=== PATIENT | male | born 2000 | race Hispanic/Latino ===

== ENCOUNTER 2022-04-03 16:17 | Emergency (ER) | payer OTHER, SELFPAY ==
[2022-04-03] MEDS ORDERED: HYDROCODONE/APAP 7.5/325 MG TAB ONE (16:56)
[2022-04-03] MEDS ORDERED: LIDOCAINE 2% W/EPI 1:200,000 MPF 20 ML VIAL IM ONE (18:59)
--- NOTE | 2022-04-03 19:38 | ER ---
Nurse's Notes [facility] Name: Khurram Bailey Age: 21 yrs Sex: Male : 2000 Arrival Date: 04/03/2022 Time: 16:19 Bed 17 Private MD: Diagnosis: Laceration without foreign body of left hand, initial encounter Presentation: 04/03 16:19 Chief complaint: EMS states: patient cut his left wrist at work on sheet metal. patient ap3 is [place]ican speaking only, and presents to the ED with his left wrist wrapped in an alix bandage. Coronavirus screen: At this time, the client does not indicate any symptoms associated with coronavirus-19. Ebola Screen: No symptoms or risks identified at this time. Complicating Factors: Glass or an other foreign body is present in the wound. Initial Sepsis Screen: Does the patient meet any 2 criteria? No. Patient's initial sepsis screen is negative. Does the patient have a suspected source of infection? No. Patient's initial sepsis screen is negative. Risk Assessment: Do you want to hurt yourself or someone else? Patient reports no desire to harm self or others. Onset of symptoms was April 03, 2022. 16:19 Method Of Arrival: EMS: [facility] ap3 16:19 Acuity: PERNELL 4 ap3 Triage Assessment: 16:29 General: Appears uncomfortable, Behavior is cooperative, anxious. Pain: Complains of ap3 pain in left wrist Pain currently is 8 out of 10 on a pain scale. Pain began suddenly. Neuro: Level of Consciousness is awake, alert, obeys commands, Oriented to person, place, time, situation, Speech is normal. Cardiovascular: Patient's skin is warm and dry. Respiratory: Airway is patent. Injury Description: Laceration sustained to left wrist is clean, contaminated, bleeding moderately, is bleeding moderately. Historical: - Allergies: 16:29 No Known Allergies; ap3 - Home Meds: 16:29 None [Active]; ap3 - PMHx: 16:29 None; ap3 - Immunization history:: Client reports receiving the 2nd dose of the Covid vaccine, Last tetanus immunization: not immunized. - Social history:: Smoking status: Patient denies any tobacco usage or history of. Screenin:30 Abuse screen: Denies threats or abuse. Nutritional screening: No deficits noted. ap3 Tuberculosis screening: No symptoms or risk factors identified. Fall Risk None identified. Assessment: 16:30 Musculoskeletal: Range of motion: intact in all extremities. ap3 18:08 Reassessment: Patient and/or family updated on plan of care and expected duration. Pain ap3 level reassessed. Patient is alert, oriented x 3, equal unlabored respirations, skin warm/dry/pink. 18:16 Reassessment: Patient and/or family updated on plan of care and expected duration. Pain ap3 level reassessed. Patient is alert, oriented x 3, equal unlabored respirations, skin warm/dry/pink. Patient states symptoms have improved. 20:22 Reassessment: No changes from previously documented assessment. sm5 Vital Signs: 16:19 BP 143 / 80; Pulse 90; Pulse Ox 99% ; Weight 65.77 kg; Height 5 ft. 7 in. (170.18 cm); ap3 Pain 8/10; 18:08 BP 121 / 55; Pulse 75; Pulse Ox 100% on R/A; ap3 18:59 BP 94 / 68; Pulse 84; Pulse Ox 100% on R/A; ap3 16:19 Body Mass Index 22.71 (65.77 kg, 170.18 cm) ap3 ED Course: 16:19 Patient arrived in ED. ap3 16:19 Vinay Velasco PA is PHCP. cp 16:19 Talha Bateman DO is Attending Physician. cp 16:29 Triage completed. ap3 16:30 Arm band placed on right wrist. ap3 16:30 Patient has correct armband on for positive identification. Bed in low position. Call ap3 light in reach. Side rails up X2. Pulse ox on. NIBP on. Door closed. Noise minimized. 16:50 Annel Rosenthal, ODESSA is Primary Nurse. ap3 18:57 XRAY Hand LEFT 3 View In Process Unspecified. EDMS 18:59 Nurse Practitioner and/or Physician Commercial Production Editor to see patient. ap3 19:01 Assist provider with laceration repair on left wrist using sutures. Set up tray. ap3 Performed by Vinay DOUGLASS. 19:11 Primary Nurse role handed off by Annel Rosenthal, RN mw2 19:23 Ysabel Eckert RN is Primary Nurse. 5 20:21 Dressings: Kerlix X 1; left wrist non-adherent dressing x 1 left wrist. Velcro wrist 5 splint applied to left wrist. Wound care: to laceration located on left wrist was cleaned with soap and water, dressed with Kerlix, Patient tolerated well. 20:22 Patient did not have IV access during this emergency room visit. 5 Administered Medications: 17:01 Drug: Hydrocodone-Acetaminophen (7.5 mg-325 mg) 1 tabs Route: PO; ap3 18:13 Follow up: Response: No adverse reaction ap3 Medication: 20:22 VIS not applicable for this client. 5 Outcome: 19:37 Discharge ordered by . tatianna 20:22 Discharged to home ambulatory. 5 20:22 Condition: stable 20:22 Discharge instructions given to patient, Instructed on discharge instructions, follow up and referral plans. medication usage, wound care, Demonstrated understanding of instructions, follow-up care, medications, wound care, Prescriptions given X 2. 20:22 Patient left the ED. 5 Signatures: Dispatcher [employer] EDMS Vinay Velasco PA PA cp Prokisch, Amanda RN RN ap3 Alexandro Torre mw2 Ysabel Eckert RN RN sm5
--- NOTE | 2022-04-03 19:38 | EDPHYS ---
Physician Documentation [facility] Name: Khurram Bailey Age: 21 yrs Sex: Male : 2000 Arrival Date: 04/03/2022 Time: 16:19 Bed 17 Private MD: ED Physician Talha Bateman HPI: 04/03 17:00 This 21 yrs old Male presents to ER via EMS with complaints of Laceration To cp Arm. 17:00 The patient has a laceration sharp edge of sheet metal. The laceration(s) is(are) cp located on the ulna side of proximal left hand at base of thumb. Onset: The symptoms/episode began/occurred just prior to arrival. Associated signs and symptoms: Pertinent positives: heavy bleeding, Pertinent negatives: numbness distal to injury, suspected foreign body. Historical: - Allergies: 16:29 No Known Allergies; ap3 - Home Meds: 16:29 None [Active]; ap3 - PMHx: 16:29 None; ap3 - Immunization history:: Client reports receiving the 2nd dose of the Covid vaccine, Last tetanus immunization: not immunized. - Social history:: Smoking status: Patient denies any tobacco usage or history of. ROS: 17:05 Constitutional: Negative for body aches, chills, fever, poor PO intake. cp 17:05 Cardiovascular: Negative for chest pain. cp 17:05 Respiratory: Negative for cough, shortness of breath, wheezing. 17:05 Abdomen/GI: Negative for abdominal pain, nausea, vomiting, and diarrhea. 17:05 Skin: Positive for laceration(s), of the left hand. 17:05 Neuro: Negative for altered mental status, headache, numbness, weakness. 17:05 All other systems are negative. Exam: 17:10 Constitutional: The patient appears in no acute distress, alert, awake, non-toxic, well cp developed, well nourished. 17:10 Head/Face: Normocephalic, atraumatic. cp 17:10 Chest/axilla: Inspection: normal. 17:10 Cardiovascular: Rate: normal, Pulses: Pulses are 2+ in left radial artery. 17:10 Respiratory: the patient does not display signs of respiratory distress, Respirations: normal, no use of accessory muscles, no retractions, labored breathing, is not present. 17:10 Abdomen/GI: Exam negative for discomfort, distension, guarding, Inspection: abdomen appears normal. 17:10 Skin: injury, laceration(s), the wound is approximately 5.5 cm(s), of the dorsal side proximal to left thumb, that can be described as clean, no foreign body, linear, with mild bleeding. 17:10 Musculoskeletal/extremity: ROM: full active range of motion, in the left hand, cp Perfusion: the extremity is normally perfused throughout, Sensation intact. Tendon exam: specific tendon testing normal through active and passive range of motion Vital Signs: 16:19 BP 143 / 80; Pulse 90; Pulse Ox 99% ; Weight 65.77 kg; Height 5 ft. 7 in. (170.18 cm); ap3 Pain 8/10; 18:08 BP 121 / 55; Pulse 75; Pulse Ox 100% on R/A; ap3 18:59 BP 94 / 68; Pulse 84; Pulse Ox 100% on R/A; ap3 16:19 Body Mass Index 22.71 (65.77 kg, 170.18 cm) ap3 Laceration: 19:35 Wound Repair of 5.5cm ( 2.2in ) subcutaneous laceration to dorsal side proximal to left cp thumb. Linear shaped.. Distal neuro/vascular/tendon intact. Anesthesia: Wound infiltrated with 10 mls of 1% lidocaine w/ Epi. Wound prep: Moderate cleansing by me, Wound irrigation by me. Skin closed with 1 4-0 Prolene using running sutures and sterile technique. Dressed with 4x4's, Kerlix. Patient tolerated well. MDM: 16:32 Patient medically screened. cp 19:37 Data reviewed: vital signs, nurses notes, radiologic studies, plain films. cp 19:37 Differential diagnosis: superficial laceration, tendon injury, vascular injury, foreign cp body, fracture. Test interpretation: by ED physician or midlevel provider: plain radiologic studies. Counseling: I had a detailed discussion with the patient and/or guardian regarding: the historical points, exam findings, and any diagnostic results supporting the discharge/admit diagnosis, radiology results, the need for outpatient follow up, a family practitioner, to return to the emergency department if symptoms worsen or persist or if there are any questions or concerns that arise at home. Response to treatment: the patient's symptoms have markedly improved after treatment, and as a result, I will discharge patient. 05/23 16:41 Order name: XRAY Hand LEFT 3 View cp 04/03 19:36 Order name: Wrist Splint; Complete Time: 20:21 cp 04/03 19:36 Order name: Wound dressing; Complete Time: 20:21 cp Administered Medications: 17:01 Drug: Hydrocodone-Acetaminophen (7.5 mg-325 mg) 1 tabs Route: PO; ap3 18:13 Follow up: Response: No adverse reaction ap3 Disposition Summary: 04/03/22 19:37 Discharge Ordered Location: Home cp Problem: new cp Symptoms: have improved cp Condition: Stable cp Diagnosis - Laceration without foreign body of left hand, initial encounter cp Followup: cp - With: Private Physician - When: 10 - 14 days - Reason: Staple/Suture removal Discharge Instructions: - Discharge Summary Sheet cp - Laceration Care, Adult cp - Sutured Wound Care cp Forms: - Medication Reconciliation Form cp - Thank You Letter cp - Antibiotic Education cp - Prescription Opioid Use cp Prescriptions: - Cephalexin 500 mg Oral Capsule - take 1 capsule by ORAL route every 8 hours for 10 days; 30 capsule; Refills: 0, cp Product Selection Permitted - Ibuprofen 600 mg Oral Tablet - take 1 tablet by ORAL route every 8 hours As needed take with food; 30 tablet; cp Refills: 0, Product Selection Permitted Signatures: Dispatcher [employer] EDMS Vinay Velasco PA PA cp Annel Rosenthal, RN RN ap3 Corrections: (The following items were deleted from the chart) 04/04 18:40 04/03 17:00 The laceration(s) is(are) located on the ulna side of left wrist, cp cp 04/04 18:43 04/03 19:30 Wound Repair of 5.5cm ( 2.2in ) subcutaneous laceration to dorsal side cp proximal to left thumb. Linear shaped.. Distal neuro/vascular/tendon intact. Anesthesia: Wound infiltrated with 10 mls of 1% lidocaine w/ Epi. Wound prep: Moderate cleansing by me, Wound irrigation by me. Skin closed with 1 4-0 Prolene using running sutures and sterile technique. Dressed with 4x4's, Kerlix. Patient tolerated well. cp 04/04 18:51 04/03 17:10 Skin: injury, laceration(s), the wound is approximately 5.5 cm(s), cp cp
--- NOTE | 2022-04-03 19:51 | RAD REPORT ---
EXAM DESCRIPTION: RAD - Hand Left 3 View - 04/03/2022 6:55 pm CLINICAL HISTORY: PAIN COMPARISON: None. FINDINGS: No fracture, dislocation or periosteal reaction noted. Flexion at the IP joint of the thum b is present without acute bone finding. This may be chronic for the patient. No joint space narrowin g. Bandaging or similar material is seen around the wrist. No air or foreign body seen. IMPRESSION: No acute bone or joint finding identified. No air or foreign body in the soft tissues.
[2022-04-03 20:31] VITALS: O2SAT 100
[2022-04-03 20:32] VITALS: BP 94/68
== END 2022-04-03 20:22 | disposition home or self-care (01) ==
LOC: ER 16:17
PROC: 0JQK0ZZ Repair Left Hand Subcutaneous Tissue and Fascia, Open Approach (ICD-10-PCS; principal; 2022-04-03)
DX: S61.412A Laceration without foreign body of left hand, initial encounter (principal); W26.8XXA Contact with other sharp object(s), not elsewhere classified, initial encounter; Y93.89 Activity, other specified; Y92.69 Other specified industrial and construction area as the place of occurrence of the external cause; Y99.0 Civilian activity done for income or pay
CPT/HCPCS: 99284